=== PATIENT | male | born 1945 | race Caucasian/White ===

== ENCOUNTER 2023-01-19 20:46 | Inpatient (IN) | payer MEDICARE ==
[2023-01-19] MEDS ORDERED: Artificial Tear Sol 15 ML BOT EA EYE PRN (21:21)
[2023-01-19] MEDS ORDERED: Bisacodyl 10 MG SUPP PR PRN (21:21)
[2023-01-19] MEDS ORDERED: Acetaminophen 650 MG Suppository PR PRN (21:21)
[2023-01-19] MEDS ORDERED: Bisacodyl 5 MG TAB PO PRN (21:21)
[2023-01-19] MEDS ORDERED: Senokot S 8.6-50 MG TAB PO PRN (21:21)
[2023-01-19] MEDS ORDERED: Guaifenesin DM 100-10/5 ML UDCUP PO PRN (21:21)
[2023-01-19] MEDS ORDERED: Cepastat Lozenges 1 LOZ PO PRN (21:21)
[2023-01-19] MEDS ORDERED: Benzonatate 100 MG CAP PO PRN (21:21)
[2023-01-19] MEDS ORDERED: Labetalol HCl 100 MG/20 ML VIAL SLOW IVP PRN (21:21)
[2023-01-19] MEDS ORDERED: Calcium Carbonate 500 MG ChewTAB PO PRN (21:21)
[2023-01-19] MEDS ORDERED: Atorvastatin Calcium 40 MG TAB PO SCH (21:45)
[2023-01-19] MEDS ORDERED: Famotidine 20 MG TAB PO SCH (21:45)
[2023-01-19] MEDS ORDERED: Sertraline 25 MG TAB PO SCH (21:45)
[2023-01-20] MEDS: Sodium Chloride 0.9% 1,000 ML IV SCH ×2 (00:28→05:14)
[2023-01-20 05:42] LABS: #Basophils 0.1 thou/uL (0.0-0.2); #Eosinphils 0.4 thou/uL (0.0-0.7); #Lymphocytes 1.7 thou/uL (1.20-3.40); #Monocytes 0.9 thou/uL (0.11-0.59); #Neutrophils 6.5 thou/uL (1.40-6.50); %Basophils 0.7 % (0.0-1.0); %Eosinophils 3.9 % (0.0-10.0); %Lymphocytes 17.4 % (21.0-51.0); %Monocytes 9.3 % (0.0-10.0); %Neutrophils 68.6 % (42.0-75.0); Hemoglobin 12.9 g/dL (14.0-18.0); Mean Corpuscular HGB CONC 34.1 g/dL (32.0-36.0); Mean Platelet Volume 6.7 fL (7.4-10.4); Platelet Count 317 10x3/uL (130-400); RBC Distribution Width 11.3 % (11.5-14.5); Red Blood Cell (RBC) Count 4.16 mill/uL (4.70-6.10); White Blood Cell (WBC) Count 9.5 10x3/uL (4.8-10.8)
[2023-01-20 05:54] LABS: Anion Gap 15 mmol/L (10-20); BUN (Urea Nitrogen) 12 mg/dL (8.4-25.7); Calc. Creatinine Clearance 0 mL/min (70-130); Calcium 9.1 mg/dL (7.8-10.44); Carbon Dioxide 18 mmol/L (23-31); Chloride 110 mmol/L (98-107); Estimated GFR 96; Glucose 87 mg/dL (83-110); Potassium 3.7 mmol/L (3.5-5.1); Sodium 139 mmol/L (136-145)
[2023-01-20] MEDS: Losartan 25 MG TAB PO SCH (09:57)
[2023-01-20] MEDS: NIFEdipine XL 30 MG TAB PO SCH (09:57)
[2023-01-20] MEDS: Famotidine 20 MG TAB PO SCH ×2 (09:57→20:46)
[2023-01-20] MEDS: Loratadine 10 MG TAB PO SCH (09:57)
[2023-01-20] MEDS: Venlafaxine HCl 25 MG TAB PO SCH (09:58)
[2023-01-20] MEDS: Tamsulosin HCl 0.4 MG CAP PO SCH (09:58)
[2023-01-20] MEDS: Acetaminophen 325 MG TAB PO PRN ×2 (10:24→19:06)
[2023-01-20] MEDS: cefTRIAXone\\ROCEPHIN 1 GM in Sodium Chloride 0.9% 100 ML IVPB SCH (17:52)
[2023-01-20] MEDS ORDERED: Fluticasone Propionate Nasal Spray 16 gm Bottle NASAL SCH (18:00)
[2023-01-20] MEDS: Sertraline 100 MG TAB PO SCH (20:46)
[2023-01-20] MEDS: Atorvastatin Calcium 40 MG TAB PO SCH (20:46)
[2023-01-20] MEDS ORDERED: Sertraline 25 MG TAB PO SCH (21:00)
[2023-01-20] MEDS ORDERED: Sodium Chloride 0.9% 1,000 ML IV SCH (23:45)
[2023-01-21] MEDS: Venlafaxine HCl 25 MG TAB PO SCH (08:38)
[2023-01-21] MEDS: Loratadine 10 MG TAB PO SCH (08:39)
[2023-01-21] MEDS: Famotidine 20 MG TAB PO SCH ×2 (08:39→21:00)
[2023-01-21] MEDS: Losartan 25 MG TAB PO SCH (08:39)
[2023-01-21] MEDS: Tamsulosin HCl 0.4 MG CAP PO SCH (08:39)
[2023-01-21] MEDS: NIFEdipine XL 30 MG TAB PO SCH (08:39)
[2023-01-21] MEDS: cefTRIAXone\\ROCEPHIN 1 GM in Sodium Chloride 0.9% 100 ML IVPB SCH (17:42)
[2023-01-21] MEDS: Acetaminophen 325 MG TAB PO PRN (18:15)
[2023-01-21] MEDS: QUEtiapine 25 MG TAB PO SCH (21:00)
[2023-01-21] MEDS: Atorvastatin Calcium 40 MG TAB PO SCH (21:00)
[2023-01-21] MEDS: Sertraline 100 MG TAB PO SCH (21:01)
[2023-01-22] MEDS: Loratadine 10 MG TAB PO SCH (08:26)
[2023-01-22] MEDS: Losartan 25 MG TAB PO SCH (08:26)
[2023-01-22] MEDS: Tamsulosin HCl 0.4 MG CAP PO SCH (08:26)
[2023-01-22] MEDS: NIFEdipine XL 30 MG TAB PO SCH (08:26)
[2023-01-22] MEDS: Famotidine 20 MG TAB PO SCH ×2 (08:26→21:13)
[2023-01-22] MEDS: Venlafaxine HCl 25 MG TAB PO SCH (08:26)
[2023-01-22] MEDS: Fluticasone Propionate Nasal Spray 16 gm Bottle NASAL SCH (08:31)
[2023-01-22] MEDS: cefTRIAXone\\ROCEPHIN 1 GM in Sodium Chloride 0.9% 100 ML IVPB SCH (17:27)
[2023-01-22] MEDS: Sertraline 100 MG TAB PO SCH (21:11)
[2023-01-22] MEDS: Atorvastatin Calcium 40 MG TAB PO SCH (21:13)
[2023-01-22] MEDS: QUEtiapine 25 MG TAB PO SCH (21:13)
[2023-01-23] MEDS: Famotidine 20 MG TAB PO SCH ×2 (09:12→20:50)
[2023-01-23] MEDS: Loratadine 10 MG TAB PO SCH (09:12)
[2023-01-23] MEDS: Losartan 25 MG TAB PO SCH (09:12)
[2023-01-23] MEDS: Tamsulosin HCl 0.4 MG CAP PO SCH (09:12)
[2023-01-23] MEDS: Venlafaxine HCl 25 MG TAB PO SCH (09:12)
[2023-01-23] MEDS: NIFEdipine XL 30 MG TAB PO SCH (09:12)
[2023-01-23] MEDS: Fluticasone Propionate Nasal Spray 16 gm Bottle NASAL SCH (09:18)
[2023-01-23 15:13] LABS: SARS-CoV-2 NAA Rapid Test Not Detected (NotDetected)
[2023-01-23] MEDS: cefTRIAXone\\ROCEPHIN 1 GM in Sodium Chloride 0.9% 100 ML IVPB SCH (17:57)
[2023-01-23] MEDS: Sertraline 100 MG TAB PO SCH (20:48)
[2023-01-23] MEDS: QUEtiapine 25 MG TAB PO SCH (20:49)
[2023-01-23] MEDS: Atorvastatin Calcium 40 MG TAB PO SCH (20:50)
[2023-01-24] MEDS: NIFEdipine XL 30 MG TAB PO SCH (08:17)
[2023-01-24] MEDS: Venlafaxine HCl 25 MG TAB PO SCH (08:17)
[2023-01-24] MEDS: Tamsulosin HCl 0.4 MG CAP PO SCH (08:17)
[2023-01-24] MEDS: Losartan Potassium 50 MG TAB PO SCH (08:17)
[2023-01-24] MEDS: Loratadine 10 MG TAB PO SCH (08:18)
[2023-01-24] MEDS: Famotidine 20 MG TAB PO SCH ×2 (08:18→20:29)
[2023-01-24] MEDS: Fluticasone Propionate Nasal Spray 16 gm Bottle NASAL SCH (08:22)
[2023-01-24] MEDS: cefTRIAXone\\ROCEPHIN 1 GM in Sodium Chloride 0.9% 100 ML IVPB SCH (18:17)
[2023-01-24] MEDS: Atorvastatin Calcium 40 MG TAB PO SCH (20:29)
[2023-01-24] MEDS: Sertraline 100 MG TAB PO SCH (20:29)
[2023-01-24] MEDS: QUEtiapine 25 MG TAB PO SCH (20:30)
[2023-01-24] MEDS: Acetaminophen 325 MG TAB PO PRN (20:34)
[2023-01-25 06:26] LABS: #Basophils 0.1 thou/uL (0.0-0.2); #Eosinphils 0.6 thou/uL (0.0-0.7); #Lymphocytes 1.6 thou/uL (1.20-3.40); #Monocytes 0.7 thou/uL (0.11-0.59); #Neutrophils 2.8 thou/uL (1.40-6.50); %Eosinophils 10.9 % (0.0-10.0); %Lymphocytes 27.7 % (21.0-51.0); %Monocytes 11.7 % (0.0-10.0); %Neutrophils 48.8 % (42.0-75.0); Mean Corpuscular HGB CONC 32.2 g/dL (32.0-36.0); Mean Corpuscular Hemoglobin 29.4 pg (27.0-31.0); Mean Corpuscular Volume 91.5 fl (78.0-98.0); Mean Platelet Volume 7.3 fL (7.4-10.4); Platelet Count 310 10x3/uL (130-400); RBC Distribution Width 11.7 % (11.5-14.5); Red Blood Cell (RBC) Count 4.09 mill/uL (4.70-6.10); White Blood Cell (WBC) Count 5.8 10x3/uL (4.8-10.8)
[2023-01-25 06:33] LABS: Anion Gap 14 mmol/L (10-20); BUN (Urea Nitrogen) 10 mg/dL (8.4-25.7); Calc. Creatinine Clearance 97 mL/min (70-130); Calcium 9.2 mg/dL (7.8-10.44); Carbon Dioxide 20 mmol/L (23-31); Chloride 109 mmol/L (98-107); Estimated GFR 95; Glucose 96 mg/dL (83-110); Potassium 3.5 mmol/L (3.5-5.1); Sodium 139 mmol/L (136-145)
[2023-01-25] MEDS: Venlafaxine HCl 25 MG TAB PO SCH (08:59)
[2023-01-25] MEDS: Tamsulosin HCl 0.4 MG CAP PO SCH (08:59)
[2023-01-25] MEDS: NIFEdipine XL 30 MG TAB PO SCH (08:59)
[2023-01-25] MEDS: Famotidine 20 MG TAB PO SCH ×2 (09:00→20:30)
[2023-01-25] MEDS: Losartan Potassium 50 MG TAB PO SCH (09:00)
[2023-01-25] MEDS: Loratadine 10 MG TAB PO SCH (09:00)
[2023-01-25] MEDS: Fluticasone Propionate Nasal Spray 16 gm Bottle NASAL SCH (09:09)
[2023-01-25] MEDS: Atorvastatin Calcium 40 MG TAB PO SCH (20:30)
[2023-01-25] MEDS: QUEtiapine 25 MG TAB PO SCH (20:30)
[2023-01-25] MEDS: Sertraline 100 MG TAB PO SCH (20:30)
[2023-01-25] MEDS: Acetaminophen 325 MG TAB PO PRN (20:36)
[2023-01-26] MEDS: Loratadine 10 MG TAB PO SCH (09:43)
[2023-01-26] MEDS: NIFEdipine XL 30 MG TAB PO SCH (09:44)
[2023-01-26] MEDS: Famotidine 20 MG TAB PO SCH ×2 (09:44→20:46)
[2023-01-26] MEDS: Venlafaxine HCl 25 MG TAB PO SCH (09:44)
[2023-01-26] MEDS: Tamsulosin HCl 0.4 MG CAP PO SCH (09:44)
[2023-01-26] MEDS: Losartan Potassium 50 MG TAB PO SCH (09:44)
[2023-01-26] MEDS: Fluticasone Propionate Nasal Spray 16 gm Bottle NASAL SCH (09:45)
[2023-01-26] MEDS: Acetaminophen 325 MG TAB PO PRN (16:57)
[2023-01-26] MEDS: Atorvastatin Calcium 40 MG TAB PO SCH (20:45)
[2023-01-26] MEDS: QUEtiapine 25 MG TAB PO SCH (20:45)
[2023-01-26] MEDS: Sertraline 100 MG TAB PO SCH (20:46)
[2023-01-27] MEDS: Acetaminophen 325 MG TAB PO PRN ×2 (07:51→20:56)
[2023-01-27] MEDS: NIFEdipine XL 30 MG TAB PO SCH (07:52)
[2023-01-27] MEDS: Losartan Potassium 50 MG TAB PO SCH (07:52)
[2023-01-27] MEDS: Famotidine 20 MG TAB PO SCH ×2 (07:52→20:57)
[2023-01-27] MEDS: Loratadine 10 MG TAB PO SCH (07:52)
[2023-01-27] MEDS: Venlafaxine HCl 25 MG TAB PO SCH (07:52)
[2023-01-27] MEDS: Tamsulosin HCl 0.4 MG CAP PO SCH (07:52)
[2023-01-27] MEDS: Fluticasone Propionate Nasal Spray 16 gm Bottle NASAL SCH (07:53)
[2023-01-27] MEDS: QUEtiapine 25 MG TAB PO SCH (20:55)
[2023-01-27] MEDS: Sertraline 100 MG TAB PO SCH (20:56)
[2023-01-27] MEDS: Atorvastatin Calcium 40 MG TAB PO SCH (20:56)
[2023-01-28 06:13] LABS: Anion Gap 13 mmol/L (10-20); BUN (Urea Nitrogen) 12 mg/dL (8.4-25.7); Calc. Creatinine Clearance 95 mL/min (70-130); Carbon Dioxide 20 mmol/L (23-31); Chloride 108 mmol/L (98-107); Estimated GFR 95; Glucose 95 mg/dL (83-110); Potassium 3.6 mmol/L (3.5-5.1); Sodium 137 mmol/L (136-145)
[2023-01-28 06:39] LABS: #Basophils 0.1 thou/uL (0.0-0.2); #Eosinphils 0.4 thou/uL (0.0-0.7); #Lymphocytes 1.4 thou/uL (1.20-3.40); #Monocytes 0.8 thou/uL (0.11-0.59); #Neutrophils 7.8 thou/uL (1.40-6.50); %Basophils 0.5 % (0.0-1.0); %Eosinophils 4.3 % (0.0-10.0); %Lymphocytes 13.8 % (21.0-51.0); %Monocytes 7.3 % (0.0-10.0); %Neutrophils 74.2 % (42.0-75.0); Hemoglobin 12.4 g/dL (14.0-18.0); Mean Corpuscular HGB CONC 33.1 g/dL (32.0-36.0); Mean Corpuscular Hemoglobin 30.4 pg (27.0-31.0); Mean Corpuscular Volume 91.7 fl (78.0-98.0); Mean Platelet Volume 7.2 fL (7.4-10.4); Platelet Count 298 10x3/uL (130-400); RBC Distribution Width 11.7 % (11.5-14.5); Red Blood Cell (RBC) Count 4.09 mill/uL (4.70-6.10); White Blood Cell (WBC) Count 10.5 10x3/uL (4.8-10.8)
[2023-01-28] MEDS: Tamsulosin HCl 0.4 MG CAP PO SCH (08:49)
[2023-01-28] MEDS: Venlafaxine HCl 25 MG TAB PO SCH (08:49)
[2023-01-28] MEDS: NIFEdipine XL 30 MG TAB PO SCH (08:50)
[2023-01-28] MEDS: Famotidine 20 MG TAB PO SCH ×2 (08:50→20:59)
[2023-01-28] MEDS: Loratadine 10 MG TAB PO SCH (08:50)
[2023-01-28] MEDS: Fluticasone Propionate Nasal Spray 16 gm Bottle NASAL SCH (08:51)
[2023-01-28] MEDS: Losartan Potassium 50 MG TAB PO SCH (08:51)
[2023-01-28] MEDS: Atorvastatin Calcium 40 MG TAB PO SCH (20:59)
[2023-01-28] MEDS: Sertraline 100 MG TAB PO SCH (20:59)
[2023-01-28] MEDS: QUEtiapine 25 MG TAB PO SCH (21:00)
[2023-01-29] MEDS: Acetaminophen 325 MG TAB PO PRN ×2 (07:17→16:00)
[2023-01-29] MEDS: Fluticasone Propionate Nasal Spray 16 gm Bottle NASAL SCH (08:13)
[2023-01-29] MEDS: Tamsulosin HCl 0.4 MG CAP PO SCH (08:14)
[2023-01-29] MEDS: Venlafaxine HCl 25 MG TAB PO SCH (08:14)
[2023-01-29] MEDS: Loratadine 10 MG TAB PO SCH (08:15)
[2023-01-29] MEDS: Famotidine 20 MG TAB PO SCH ×2 (08:15→20:16)
[2023-01-29] MEDS: Losartan Potassium 50 MG TAB PO SCH (08:15)
[2023-01-29] MEDS: NIFEdipine XL 30 MG TAB PO SCH (08:15)
[2023-01-29] MEDS: QUEtiapine 25 MG TAB PO SCH (20:16)
[2023-01-29] MEDS: Atorvastatin Calcium 40 MG TAB PO SCH (20:16)
[2023-01-29] MEDS: Sertraline 100 MG TAB PO SCH (20:16)
[2023-01-30] MEDS: Venlafaxine HCl 25 MG TAB PO SCH (08:35)
[2023-01-30] MEDS: Loratadine 10 MG TAB PO SCH (08:35)
[2023-01-30] MEDS: Losartan Potassium 50 MG TAB PO SCH (08:36)
[2023-01-30] MEDS: Tamsulosin HCl 0.4 MG CAP PO SCH (08:36)
[2023-01-30] MEDS: Famotidine 20 MG TAB PO SCH ×2 (08:36→20:56)
[2023-01-30] MEDS: NIFEdipine XL 30 MG TAB PO SCH (08:36)
[2023-01-30] MEDS: Fluticasone Propionate Nasal Spray 16 gm Bottle NASAL SCH (08:37)
[2023-01-30] MEDS: Sertraline 100 MG TAB PO SCH (20:55)
[2023-01-30] MEDS: Atorvastatin Calcium 40 MG TAB PO SCH (20:55)
[2023-01-30] MEDS: Acetaminophen 325 MG TAB PO PRN (20:56)
[2023-01-30] MEDS: QUEtiapine 25 MG TAB PO SCH (20:56)
[2023-01-31] MEDS: Tamsulosin HCl 0.4 MG CAP PO SCH (08:54)
[2023-01-31] MEDS: Venlafaxine HCl 25 MG TAB PO SCH (08:54)
[2023-01-31] MEDS: Losartan Potassium 50 MG TAB PO SCH (08:54)
[2023-01-31] MEDS: Famotidine 20 MG TAB PO SCH ×2 (08:54→20:33)
[2023-01-31] MEDS: Fluticasone Propionate Nasal Spray 16 gm Bottle NASAL SCH (08:55)
[2023-01-31] MEDS: NIFEdipine XL 30 MG TAB PO SCH (08:55)
[2023-01-31] MEDS: Loratadine 10 MG TAB PO SCH (08:55)
[2023-01-31] MEDS: Acetaminophen 325 MG TAB PO PRN (15:00)
[2023-01-31] MEDS: QUEtiapine 25 MG TAB PO SCH (20:33)
[2023-01-31] MEDS: Sertraline 100 MG TAB PO SCH (20:33)
[2023-01-31] MEDS: Atorvastatin Calcium 40 MG TAB PO SCH (20:33)
[2023-02-01 05:55] LABS: #Basophils 0.1 thou/uL (0.0-0.2); #Eosinphils 0.5 thou/uL (0.0-0.7); #Lymphocytes 1.1 thou/uL (1.20-3.40); #Monocytes 0.7 thou/uL (0.11-0.59); %Basophils 0.7 % (0.0-1.0); %Eosinophils 5.5 % (0.0-10.0); %Lymphocytes 13.6 % (21.0-51.0); %Monocytes 8.3 % (0.0-10.0); %Neutrophils 71.9 % (42.0-75.0); Hemoglobin 12.3 g/dL (14.0-18.0); Mean Corpuscular HGB CONC 32.5 g/dL (32.0-36.0); Mean Corpuscular Hemoglobin 29.8 pg (27.0-31.0); Mean Corpuscular Volume 91.6 fl (78.0-98.0); Mean Platelet Volume 7.5 fL (7.4-10.4); Platelet Count 263 10x3/uL (130-400); RBC Distribution Width 11.9 % (11.5-14.5); Red Blood Cell (RBC) Count 4.13 mill/uL (4.70-6.10); White Blood Cell (WBC) Count 8.4 10x3/uL (4.8-10.8)
[2023-02-01 06:05] LABS: Anion Gap 15 mmol/L (10-20); BUN (Urea Nitrogen) 9 mg/dL (8.4-25.7); Calc. Creatinine Clearance 103 mL/min (70-130); Calcium 9.4 mg/dL (7.8-10.44); Carbon Dioxide 18 mmol/L (23-31); Chloride 109 mmol/L (98-107); Estimated GFR 98; Glucose 96 mg/dL (83-110); Potassium 3.3 mmol/L (3.5-5.1); Sodium 139 mmol/L (136-145)
[2023-02-01] MEDS: NIFEdipine XL 30 MG TAB PO SCH (09:41)
[2023-02-01] MEDS: Fluticasone Propionate Nasal Spray 16 gm Bottle NASAL SCH (09:41)
[2023-02-01] MEDS: Tamsulosin HCl 0.4 MG CAP PO SCH (09:42)
[2023-02-01] MEDS: Venlafaxine HCl 25 MG TAB PO SCH (09:42)
[2023-02-01] MEDS: Loratadine 10 MG TAB PO SCH (09:42)
[2023-02-01] MEDS: Famotidine 20 MG TAB PO SCH ×2 (09:42→21:15)
[2023-02-01] MEDS: Losartan Potassium 50 MG TAB PO SCH (09:42)
[2023-02-01] MEDS: Acetaminophen 325 MG TAB PO PRN ×2 (15:17→21:14)
[2023-02-01] MEDS ORDERED: Potassium Chloride 20 MEQ TAB PO SCH (19:30)
[2023-02-01] MEDS: QUEtiapine 25 MG TAB PO SCH (21:14)
[2023-02-01] MEDS: Atorvastatin Calcium 40 MG TAB PO SCH (21:15)
[2023-02-01] MEDS: Sertraline 100 MG TAB PO SCH (21:15)
[2023-02-02 06:11] LABS: Anion Gap 16 mmol/L (10-20); BUN (Urea Nitrogen) 11 mg/dL (8.4-25.7); Calc. Creatinine Clearance 105 mL/min (70-130); Calcium 9.3 mg/dL (7.8-10.44); Carbon Dioxide 18 mmol/L (23-31); Chloride 110 mmol/L (98-107); Estimated GFR 98; Glucose 99 mg/dL (83-110); Magnesium 1.8 mg/dL (1.6-2.6); Potassium 3.6 mmol/L (3.5-5.1); Sodium 140 mmol/L (136-145)
[2023-02-02] MEDS: Fluticasone Propionate Nasal Spray 16 gm Bottle NASAL SCH (08:11)
[2023-02-02] MEDS: Venlafaxine HCl 25 MG TAB PO SCH (08:12)
[2023-02-02] MEDS: Losartan Potassium 50 MG TAB PO SCH (08:12)
[2023-02-02] MEDS: NIFEdipine XL 30 MG TAB PO SCH (08:12)
[2023-02-02] MEDS: Tamsulosin HCl 0.4 MG CAP PO SCH (08:12)
[2023-02-02] MEDS: Famotidine 20 MG TAB PO SCH ×2 (08:13→21:07)
[2023-02-02] MEDS: Loratadine 10 MG TAB PO SCH (08:13)
[2023-02-02] MEDS: QUEtiapine 25 MG TAB PO SCH (21:05)
[2023-02-02] MEDS: Acetaminophen 325 MG TAB PO PRN (21:06)
[2023-02-02] MEDS: Atorvastatin Calcium 40 MG TAB PO SCH (21:06)
[2023-02-02] MEDS: Sertraline 100 MG TAB PO SCH (21:07)
[2023-02-03] MEDS: Famotidine 20 MG TAB PO SCH ×2 (08:37→21:45)
[2023-02-03] MEDS: Venlafaxine HCl 25 MG TAB PO SCH (08:37)
[2023-02-03] MEDS: Tamsulosin HCl 0.4 MG CAP PO SCH (08:38)
[2023-02-03] MEDS: Loratadine 10 MG TAB PO SCH (08:38)
[2023-02-03] MEDS: NIFEdipine XL 30 MG TAB PO SCH (08:39)
[2023-02-03] MEDS: Losartan Potassium 50 MG TAB PO SCH (08:39)
[2023-02-03] MEDS: Acetaminophen 325 MG TAB PO PRN ×2 (08:40→17:39)
[2023-02-03] MEDS: Fluticasone Propionate Nasal Spray 16 gm Bottle NASAL SCH (08:42)
[2023-02-03] MEDS: Sertraline 100 MG TAB PO SCH (21:44)
[2023-02-03] MEDS: QUEtiapine 25 MG TAB PO SCH (21:45)
[2023-02-03] MEDS: Atorvastatin Calcium 40 MG TAB PO SCH (21:45)
[2023-02-04 05:42] LABS: #Basophils 0.1 thou/uL (0.0-0.2); #Eosinphils 0.5 thou/uL (0.0-0.7); #Lymphocytes 1.4 thou/uL (1.20-3.40); #Monocytes 0.7 thou/uL (0.11-0.59); #Neutrophils 5.4 thou/uL (1.40-6.50); %Basophils 0.8 % (0.0-1.0); %Eosinophils 5.8 % (0.0-10.0); %Lymphocytes 17.5 % (21.0-51.0); %Monocytes 8.3 % (0.0-10.0); %Neutrophils 67.6 % (42.0-75.0); Hemoglobin 12.4 g/dL (14.0-18.0); Mean Corpuscular Hemoglobin 29.7 pg (27.0-31.0); Mean Platelet Volume 7.2 fL (7.4-10.4); Platelet Count 271 10x3/uL (130-400); RBC Distribution Width 11.6 % (11.5-14.5); Red Blood Cell (RBC) Count 4.17 mill/uL (4.70-6.10)
[2023-02-04 05:50] LABS: Anion Gap 14 mmol/L (10-20); BUN (Urea Nitrogen) 10 mg/dL (8.4-25.7); Calc. Creatinine Clearance 92 mL/min (70-130); Calcium 9.5 mg/dL (7.8-10.44); Carbon Dioxide 20 mmol/L (23-31); Chloride 109 mmol/L (98-107); Estimated GFR 96; Glucose 100 mg/dL (83-110); Potassium 3.5 mmol/L (3.5-5.1); Sodium 139 mmol/L (136-145)
[2023-02-04] MEDS: Fluticasone Propionate Nasal Spray 16 gm Bottle NASAL SCH (07:53)
[2023-02-04] MEDS: Tamsulosin HCl 0.4 MG CAP PO SCH (07:54)
[2023-02-04] MEDS: NIFEdipine XL 30 MG TAB PO SCH (07:54)
[2023-02-04] MEDS: Venlafaxine HCl 25 MG TAB PO SCH (07:54)
[2023-02-04] MEDS: Loratadine 10 MG TAB PO SCH (07:54)
[2023-02-04] MEDS: Famotidine 20 MG TAB PO SCH ×2 (07:55→21:32)
[2023-02-04] MEDS: Losartan Potassium 50 MG TAB PO SCH (07:55)
[2023-02-04] MEDS: QUEtiapine 25 MG TAB PO SCH (21:32)
[2023-02-04] MEDS: Acetaminophen 325 MG TAB PO PRN (21:32)
[2023-02-04] MEDS: Sertraline 100 MG TAB PO SCH (21:33)
[2023-02-04] MEDS: Atorvastatin Calcium 40 MG TAB PO SCH (21:34)
[2023-02-05] MEDS: Venlafaxine HCl 25 MG TAB PO SCH (08:19)
[2023-02-05] MEDS: Loratadine 10 MG TAB PO SCH (08:20)
[2023-02-05] MEDS: Fluticasone Propionate Nasal Spray 16 gm Bottle NASAL SCH (08:20)
[2023-02-05] MEDS: NIFEdipine XL 30 MG TAB PO SCH (08:20)
[2023-02-05] MEDS: Tamsulosin HCl 0.4 MG CAP PO SCH (08:20)
[2023-02-05] MEDS: Famotidine 20 MG TAB PO SCH ×2 (08:20→21:32)
[2023-02-05] MEDS: Losartan Potassium 50 MG TAB PO SCH (08:20)
[2023-02-05 08:26] LABS: Bilirubin Small (Negative); Blood, Urine Negative (Negative); Clarity Clear (Clear); Glucose, Urine (Dipstick) Negative (Negative); Ketone, Urine Negative (Negative); Leukocyte Negative (Negative); Nitrite Negative (Negative); Protein, Urine (Dipstick) Negative (Neg-Trace); pH, Urine 5.5 (5.0-9.0)
[2023-02-05 08:28] LABS: Specific Gravity, Urine 1.025 (1.002-1.036)
[2023-02-05 08:30] LABS: Bacteria/HPF None Seen HPF (None Seen); CAUTI Indications for Culture Dysuria,urgency,freq; RBC/HPF None Seen HPF (0-3); Squamous Epithelial None Seen HPF (0-3); WBC/HPF None Seen HPF (0-3)
[2023-02-05 08:32] LABS: Urine Culture Reflex No No
[2023-02-05] MEDS: Acetaminophen 325 MG TAB PO PRN ×2 (10:21→21:33)
[2023-02-05] MEDS: QUEtiapine 25 MG TAB PO SCH (21:32)
[2023-02-05] MEDS: Atorvastatin Calcium 40 MG TAB PO SCH (21:33)
[2023-02-05] MEDS: Sertraline 100 MG TAB PO SCH (21:33)
[2023-02-06] MEDS: Fluticasone Propionate Nasal Spray 16 gm Bottle NASAL SCH (08:30)
[2023-02-06] MEDS: Venlafaxine HCl 25 MG TAB PO SCH (08:30)
[2023-02-06] MEDS: Acetaminophen 325 MG TAB PO PRN ×2 (08:31→20:59)
[2023-02-06] MEDS: Losartan Potassium 50 MG TAB PO SCH (08:31)
[2023-02-06] MEDS: Tamsulosin HCl 0.4 MG CAP PO SCH (08:31)
[2023-02-06] MEDS: Famotidine 20 MG TAB PO SCH ×2 (08:32→21:00)
[2023-02-06] MEDS: Loratadine 10 MG TAB PO SCH (08:32)
[2023-02-06] MEDS: NIFEdipine XL 30 MG TAB PO SCH (08:32)
[2023-02-06] MEDS: QUEtiapine 25 MG TAB PO SCH (20:58)
[2023-02-06] MEDS: Atorvastatin Calcium 40 MG TAB PO SCH (20:59)
[2023-02-06] MEDS: Sertraline 100 MG TAB PO SCH (20:59)
[2023-02-07] MEDS: Famotidine 20 MG TAB PO SCH ×2 (07:48→20:48)
[2023-02-07] MEDS: Losartan Potassium 50 MG TAB PO SCH (07:48)
[2023-02-07] MEDS: Tamsulosin HCl 0.4 MG CAP PO SCH (07:49)
[2023-02-07] MEDS: Venlafaxine HCl 25 MG TAB PO SCH (07:49)
[2023-02-07] MEDS: Loratadine 10 MG TAB PO SCH (07:49)
[2023-02-07] MEDS: NIFEdipine XL 30 MG TAB PO SCH (08:03)
[2023-02-07] MEDS: Fluticasone Propionate Nasal Spray 16 gm Bottle NASAL SCH (08:03)
[2023-02-07] MEDS: Acetaminophen 325 MG TAB PO PRN ×2 (09:25→20:47)
[2023-02-07] MEDS: QUEtiapine 25 MG TAB PO SCH (20:46)
[2023-02-07] MEDS: Sertraline 100 MG TAB PO SCH (20:47)
[2023-02-07] MEDS: Atorvastatin Calcium 40 MG TAB PO SCH (20:48)
[2023-02-08 05:55] LABS: #Basophils 0.1 thou/uL (0.0-0.2); #Eosinphils 0.7 thou/uL (0.0-0.7); #Lymphocytes 1.6 thou/uL (1.20-3.40); #Monocytes 0.7 thou/uL (0.11-0.59); #Neutrophils 4.4 thou/uL (1.40-6.50); %Basophils 0.8 % (0.0-1.0); %Eosinophils 9.3 % (0.0-10.0); %Lymphocytes 21.8 % (21.0-51.0); %Monocytes 9.1 % (0.0-10.0); Hemoglobin 11.9 g/dL (14.0-18.0); Mean Corpuscular HGB CONC 31.8 g/dL (32.0-36.0); Mean Corpuscular Hemoglobin 29.1 pg (27.0-31.0); Mean Corpuscular Volume 91.4 fl (78.0-98.0); Mean Platelet Volume 6.9 fL (7.4-10.4); Platelet Count 286 10x3/uL (130-400); RBC Distribution Width 11.7 % (11.5-14.5); Red Blood Cell (RBC) Count 4.09 mill/uL (4.70-6.10); White Blood Cell (WBC) Count 7.5 10x3/uL (4.8-10.8)
[2023-02-08 06:28] LABS: Anion Gap 16 mmol/L (10-20); BUN (Urea Nitrogen) 10 mg/dL (8.4-25.7); Calc. Creatinine Clearance 97 mL/min (70-130); Calcium 9.6 mg/dL (7.8-10.44); Carbon Dioxide 19 mmol/L (23-31); Chloride 108 mmol/L (98-107); Estimated GFR 97; Glucose 102 mg/dL (83-110); Potassium 3.5 mmol/L (3.5-5.1); Sodium 139 mmol/L (136-145)
[2023-02-08] MEDS: Losartan Potassium 50 MG TAB PO SCH (09:07)
[2023-02-08] MEDS: Tamsulosin HCl 0.4 MG CAP PO SCH (09:07)
[2023-02-08] MEDS: NIFEdipine XL 30 MG TAB PO SCH (09:07)
[2023-02-08] MEDS: Loratadine 10 MG TAB PO SCH (09:07)
[2023-02-08] MEDS: Venlafaxine HCl 25 MG TAB PO SCH (09:07)
[2023-02-08] MEDS: Famotidine 20 MG TAB PO SCH ×2 (09:07→20:00)
[2023-02-08] MEDS: Fluticasone Propionate Nasal Spray 16 gm Bottle NASAL SCH (09:08)
[2023-02-08] MEDS: Sertraline 100 MG TAB PO SCH (20:00)
[2023-02-08] MEDS: QUEtiapine 25 MG TAB PO SCH (20:00)
[2023-02-08] MEDS: Acetaminophen 325 MG TAB PO PRN (20:00)
[2023-02-08] MEDS: Atorvastatin Calcium 40 MG TAB PO SCH (20:00)
[2023-02-09] MEDS: Fluticasone Propionate Nasal Spray 16 gm Bottle NASAL SCH (09:21)
[2023-02-09] MEDS: Famotidine 20 MG TAB PO SCH ×2 (09:22→20:32)
[2023-02-09] MEDS: Losartan Potassium 50 MG TAB PO SCH (09:22)
[2023-02-09] MEDS: Tamsulosin HCl 0.4 MG CAP PO SCH (09:22)
[2023-02-09] MEDS: NIFEdipine XL 30 MG TAB PO SCH (09:22)
[2023-02-09] MEDS: Loratadine 10 MG TAB PO SCH (09:23)
[2023-02-09] MEDS: Venlafaxine HCl 25 MG TAB PO SCH (09:23)
[2023-02-09] MEDS: Acetaminophen 325 MG TAB PO PRN (17:46)
[2023-02-09] MEDS: Atorvastatin Calcium 40 MG TAB PO SCH (20:31)
[2023-02-09] MEDS: Sertraline 100 MG TAB PO SCH (20:31)
[2023-02-09] MEDS: QUEtiapine 25 MG TAB PO SCH (20:32)
[2023-02-10] MEDS: Fluticasone Propionate Nasal Spray 16 gm Bottle NASAL SCH (08:20)
[2023-02-10] MEDS: Losartan Potassium 50 MG TAB PO SCH (08:21)
[2023-02-10] MEDS: Tamsulosin HCl 0.4 MG CAP PO SCH (08:21)
[2023-02-10] MEDS: Loratadine 10 MG TAB PO SCH (08:21)
[2023-02-10] MEDS: Venlafaxine HCl 25 MG TAB PO SCH (08:21)
[2023-02-10] MEDS: NIFEdipine XL 30 MG TAB PO SCH (08:21)
[2023-02-10] MEDS: Famotidine 20 MG TAB PO SCH ×2 (08:21→20:20)
[2023-02-10] MEDS: Acetaminophen 325 MG TAB PO PRN ×2 (08:26→20:21)
[2023-02-10] MEDS: Sertraline 100 MG TAB PO SCH (20:20)
[2023-02-10] MEDS: Atorvastatin Calcium 40 MG TAB PO SCH (20:20)
[2023-02-10] MEDS: QUEtiapine 25 MG TAB PO SCH (20:20)
[2023-02-11 06:04] LABS: Anion Gap 16 mmol/L (10-20); BUN (Urea Nitrogen) 10 mg/dL (8.4-25.7); Calc. Creatinine Clearance 105 mL/min (70-130); Calcium 9.5 mg/dL (7.8-10.44); Chloride 107 mmol/L (98-107); Estimated GFR 98; Glucose 101 mg/dL (83-110); Potassium 3.5 mmol/L (3.5-5.1); Sodium 136 mmol/L (136-145)
[2023-02-11 06:14] LABS: #Basophils 0.1 thou/uL (0.0-0.2); #Eosinphils 0.7 thou/uL (0.0-0.7); #Lymphocytes 1.7 thou/uL (1.20-3.40); #Monocytes 0.6 thou/uL (0.11-0.59); #Neutrophils 4.8 thou/uL (1.40-6.50); %Basophils 0.7 % (0.0-1.0); %Eosinophils 8.5 % (0.0-10.0); %Lymphocytes 21.4 % (21.0-51.0); %Monocytes 8.1 % (0.0-10.0); %Neutrophils 61.3 % (42.0-75.0); Hemoglobin 12.2 g/dL (14.0-18.0); Mean Corpuscular HGB CONC 33.2 g/dL (32.0-36.0); Mean Corpuscular Hemoglobin 29.7 pg (27.0-31.0); Mean Corpuscular Volume 89.7 fl (78.0-98.0); Mean Platelet Volume 6.7 fL (7.4-10.4); Platelet Count 307 10x3/uL (130-400); Red Blood Cell (RBC) Count 4.11 mill/uL (4.70-6.10); White Blood Cell (WBC) Count 7.8 10x3/uL (4.8-10.8)
[2023-02-11 06:33] LABS: Carbon Dioxide 17 mmol/L (23-31)
[2023-02-11] MEDS: Famotidine 20 MG TAB PO SCH ×2 (09:08→20:21)
[2023-02-11] MEDS: Venlafaxine HCl 25 MG TAB PO SCH (09:08)
[2023-02-11] MEDS: Tamsulosin HCl 0.4 MG CAP PO SCH (09:08)
[2023-02-11] MEDS: Losartan Potassium 50 MG TAB PO SCH (09:09)
[2023-02-11] MEDS: NIFEdipine XL 30 MG TAB PO SCH (09:09)
[2023-02-11] MEDS: Fluticasone Propionate Nasal Spray 16 gm Bottle NASAL SCH (09:09)
[2023-02-11] MEDS: Loratadine 10 MG TAB PO SCH (09:09)
[2023-02-11] MEDS: Acetaminophen 325 MG TAB PO PRN ×2 (12:04→20:21)
[2023-02-11] MEDS: Atorvastatin Calcium 40 MG TAB PO SCH (20:20)
[2023-02-11] MEDS: QUEtiapine 25 MG TAB PO SCH (20:21)
[2023-02-11] MEDS: Sertraline 100 MG TAB PO SCH (20:21)
[2023-02-12] MEDS: Fluticasone Propionate Nasal Spray 16 gm Bottle NASAL SCH (08:25)
[2023-02-12] MEDS: Losartan Potassium 50 MG TAB PO SCH (08:26)
[2023-02-12] MEDS: Venlafaxine HCl 25 MG TAB PO SCH (08:26)
[2023-02-12] MEDS: Loratadine 10 MG TAB PO SCH (08:26)
[2023-02-12] MEDS: NIFEdipine XL 30 MG TAB PO SCH (08:26)
[2023-02-12] MEDS: Famotidine 20 MG TAB PO SCH ×2 (08:26→20:29)
[2023-02-12] MEDS: Tamsulosin HCl 0.4 MG CAP PO SCH (08:34)
[2023-02-12] MEDS: Acetaminophen 325 MG TAB PO PRN (20:29)
[2023-02-12] MEDS: Sertraline 100 MG TAB PO SCH (20:29)
[2023-02-12] MEDS: QUEtiapine 25 MG TAB PO SCH (20:29)
[2023-02-12] MEDS: Atorvastatin Calcium 40 MG TAB PO SCH (20:29)
[2023-02-13] MEDS: Loratadine 10 MG TAB PO SCH (08:36)
[2023-02-13] MEDS: Fluticasone Propionate Nasal Spray 16 gm Bottle NASAL SCH (08:36)
[2023-02-13] MEDS: Losartan Potassium 50 MG TAB PO SCH (08:36)
[2023-02-13] MEDS: Famotidine 20 MG TAB PO SCH ×2 (08:36→20:31)
[2023-02-13] MEDS: NIFEdipine XL 30 MG TAB PO SCH (08:37)
[2023-02-13] MEDS: Tamsulosin HCl 0.4 MG CAP PO SCH (08:37)
[2023-02-13] MEDS: Venlafaxine HCl 25 MG TAB PO SCH (08:40)
[2023-02-13] MEDS: Sertraline 100 MG TAB PO SCH (20:30)
[2023-02-13] MEDS: Acetaminophen 325 MG TAB PO PRN (20:31)
[2023-02-13] MEDS: QUEtiapine 25 MG TAB PO SCH (20:31)
[2023-02-13] MEDS: Atorvastatin Calcium 40 MG TAB PO SCH (20:31)
[2023-02-14] MEDS: Venlafaxine HCl 25 MG TAB PO SCH (09:16)
[2023-02-14] MEDS: Losartan Potassium 50 MG TAB PO SCH (09:16)
[2023-02-14] MEDS: NIFEdipine XL 30 MG TAB PO SCH (09:16)
[2023-02-14] MEDS: Loratadine 10 MG TAB PO SCH (09:16)
[2023-02-14] MEDS: Famotidine 20 MG TAB PO SCH ×2 (09:16→21:19)
[2023-02-14] MEDS: Tamsulosin HCl 0.4 MG CAP PO SCH (09:17)
[2023-02-14] MEDS: Fluticasone Propionate Nasal Spray 16 gm Bottle NASAL SCH (09:17)
[2023-02-14] MEDS: Acetaminophen 325 MG TAB PO PRN (21:19)
[2023-02-14] MEDS: QUEtiapine 25 MG TAB PO SCH (21:19)
[2023-02-14] MEDS: Atorvastatin Calcium 40 MG TAB PO SCH (21:19)
[2023-02-14] MEDS: Sertraline 100 MG TAB PO SCH (21:19)
[2023-02-15 05:55] LABS: #Eosinphils 0.7 thou/uL (0.0-0.7); #Lymphocytes 1.5 thou/uL (1.20-3.40); #Monocytes 0.6 thou/uL (0.11-0.59); #Neutrophils 2.9 thou/uL (1.40-6.50); %Basophils 0.7 % (0.0-1.0); %Eosinophils 11.9 % (0.0-10.0); %Lymphocytes 26.5 % (21.0-51.0); %Monocytes 10.4 % (0.0-10.0); %Neutrophils 50.5 % (42.0-75.0); Hemoglobin 11.4 g/dL (14.0-18.0); Mean Corpuscular HGB CONC 31.3 g/dL (32.0-36.0); Mean Corpuscular Hemoglobin 29.8 pg (27.0-31.0); Mean Corpuscular Volume 95.1 fl (78.0-98.0); Platelet Count 325 10x3/uL (130-400); RBC Distribution Width 12.6 % (11.5-14.5); Red Blood Cell (RBC) Count 3.84 mill/uL (4.70-6.10); White Blood Cell (WBC) Count 5.8 10x3/uL (4.8-10.8)
[2023-02-15 06:10] LABS: Anion Gap 12 mmol/L (10-20); BUN (Urea Nitrogen) 9 mg/dL (8.4-25.7); Calc. Creatinine Clearance 107 mL/min (70-130); Calcium 9.4 mg/dL (7.8-10.44); Carbon Dioxide 22 mmol/L (23-31); Chloride 110 mmol/L (98-107); Estimated GFR 99; Glucose 97 mg/dL (83-110); Potassium 3.3 mmol/L (3.5-5.1); Sodium 141 mmol/L (136-145)
[2023-02-15] MEDS: Famotidine 20 MG TAB PO SCH ×2 (09:05→20:42)
[2023-02-15] MEDS: Tamsulosin HCl 0.4 MG CAP PO SCH (09:06)
[2023-02-15] MEDS: Losartan Potassium 50 MG TAB PO SCH (09:06)
[2023-02-15] MEDS: Loratadine 10 MG TAB PO SCH (09:07)
[2023-02-15] MEDS: NIFEdipine XL 30 MG TAB PO SCH (09:07)
[2023-02-15] MEDS: Venlafaxine HCl 25 MG TAB PO SCH (09:08)
[2023-02-15] MEDS: Fluticasone Propionate Nasal Spray 16 gm Bottle NASAL SCH (09:09)
[2023-02-15] MEDS: Sertraline 100 MG TAB PO SCH (20:41)
[2023-02-15] MEDS: Atorvastatin Calcium 40 MG TAB PO SCH (20:41)
[2023-02-15] MEDS: QUEtiapine 25 MG TAB PO SCH (20:43)
[2023-02-15] MEDS: Acetaminophen 325 MG TAB PO PRN (20:43)
[2023-02-16] MEDS: Fluticasone Propionate Nasal Spray 16 gm Bottle NASAL SCH (08:34)
[2023-02-16] MEDS: Venlafaxine HCl 25 MG TAB PO SCH (08:35)
[2023-02-16] MEDS: Tamsulosin HCl 0.4 MG CAP PO SCH (08:35)
[2023-02-16] MEDS: NIFEdipine XL 30 MG TAB PO SCH (08:35)
[2023-02-16] MEDS: Losartan Potassium 50 MG TAB PO SCH (08:35)
[2023-02-16] MEDS: Famotidine 20 MG TAB PO SCH ×2 (08:36→21:31)
[2023-02-16] MEDS: Loratadine 10 MG TAB PO SCH (08:36)
[2023-02-16] MEDS: Sertraline 100 MG TAB PO SCH (21:31)
[2023-02-16] MEDS: QUEtiapine 25 MG TAB PO SCH (21:32)
[2023-02-16] MEDS: Acetaminophen 325 MG TAB PO PRN (21:33)
[2023-02-16] MEDS: Atorvastatin Calcium 40 MG TAB PO SCH (21:33)
[2023-02-17 05:26] VITALS: BMI 23.6
[2023-02-17] MEDS: Venlafaxine HCl 25 MG TAB PO SCH (08:45)
[2023-02-17] MEDS: Famotidine 20 MG TAB PO SCH ×2 (08:46→20:52)
[2023-02-17] MEDS: Losartan Potassium 50 MG TAB PO SCH (08:46)
[2023-02-17] MEDS: NIFEdipine XL 30 MG TAB PO SCH (08:46)
[2023-02-17] MEDS: Loratadine 10 MG TAB PO SCH (08:47)
[2023-02-17] MEDS: Tamsulosin HCl 0.4 MG CAP PO SCH (08:47)
[2023-02-17] MEDS: Fluticasone Propionate Nasal Spray 16 gm Bottle NASAL SCH (08:49)
[2023-02-17] MEDS: QUEtiapine 25 MG TAB PO SCH (20:52)
[2023-02-17] MEDS: Atorvastatin Calcium 40 MG TAB PO SCH (20:52)
[2023-02-17] MEDS: Acetaminophen 325 MG TAB PO PRN (20:52)
[2023-02-17] MEDS: Sertraline 100 MG TAB PO SCH (20:53)
[2023-02-18 06:10] LABS: #Basophils 0.1 thou/uL (0.0-0.2); #Eosinphils 0.6 thou/uL (0.0-0.7); #Lymphocytes 1.7 thou/uL (1.20-3.40); #Monocytes 0.7 thou/uL (0.11-0.59); #Neutrophils 3.1 thou/uL (1.40-6.50); %Basophils 0.9 % (0.0-1.0); %Eosinophils 10.3 % (0.0-10.0); %Lymphocytes 27.3 % (21.0-51.0); %Monocytes 11.4 % (0.0-10.0); %Neutrophils 50.2 % (42.0-75.0); Hemoglobin 11.5 g/dL (14.0-18.0); Mean Corpuscular HGB CONC 31.3 g/dL (32.0-36.0); Mean Corpuscular Hemoglobin 29.1 pg (27.0-31.0); Mean Corpuscular Volume 92.9 fl (78.0-98.0); Platelet Count 300 10x3/uL (130-400); RBC Distribution Width 12.9 % (11.5-14.5); Red Blood Cell (RBC) Count 3.97 mill/uL (4.70-6.10); White Blood Cell (WBC) Count 6.2 10x3/uL (4.8-10.8)
[2023-02-18 06:24] LABS: Anion Gap 12 mmol/L (10-20); BUN (Urea Nitrogen) 9 mg/dL (8.4-25.7); Calc. Creatinine Clearance 108 mL/min (70-130); Calcium 9.1 mg/dL (7.8-10.44); Carbon Dioxide 23 mmol/L (23-31); Chloride 108 mmol/L (98-107); Estimated GFR 99; Glucose 98 mg/dL (83-110); Potassium 3.2 mmol/L (3.5-5.1); Sodium 140 mmol/L (136-145)
[2023-02-18] MEDS: Fluticasone Propionate Nasal Spray 16 gm Bottle NASAL SCH (08:01)
[2023-02-18] MEDS: Venlafaxine HCl 25 MG TAB PO SCH (08:01)
[2023-02-18] MEDS: Tamsulosin HCl 0.4 MG CAP PO SCH (08:02)
[2023-02-18] MEDS: Famotidine 20 MG TAB PO SCH ×2 (08:02→20:44)
[2023-02-18] MEDS: NIFEdipine XL 30 MG TAB PO SCH (08:02)
[2023-02-18] MEDS: Loratadine 10 MG TAB PO SCH (08:02)
[2023-02-18] MEDS: Losartan Potassium 50 MG TAB PO SCH (08:02)
[2023-02-18 12:58] LABS: Magnesium 1.8 mg/dL (1.6-2.6)
[2023-02-18] MEDS: Atorvastatin Calcium 40 MG TAB PO SCH (20:43)
[2023-02-18] MEDS: QUEtiapine 25 MG TAB PO SCH (20:43)
[2023-02-18] MEDS: Sertraline 100 MG TAB PO SCH (20:44)
[2023-02-18] MEDS: Acetaminophen 325 MG TAB PO PRN (20:44)
[2023-02-19] MEDS: Fluticasone Propionate Nasal Spray 16 gm Bottle NASAL SCH (09:08)
[2023-02-19] MEDS: Potassium Chloride 20 MEQ TAB PO SCH ×2 (09:09→17:41)
[2023-02-19] MEDS: Losartan Potassium 50 MG TAB PO SCH (09:09)
[2023-02-19] MEDS: NIFEdipine XL 30 MG TAB PO SCH (09:09)
[2023-02-19] MEDS: Venlafaxine HCl 25 MG TAB PO SCH (09:09)
[2023-02-19] MEDS: Tamsulosin HCl 0.4 MG CAP PO SCH (09:09)
[2023-02-19] MEDS: Famotidine 20 MG TAB PO SCH ×2 (09:10→20:42)
[2023-02-19] MEDS: Loratadine 10 MG TAB PO SCH (09:10)
[2023-02-19] MEDS: QUEtiapine 25 MG TAB PO SCH (20:41)
[2023-02-19] MEDS: Acetaminophen 325 MG TAB PO PRN (20:41)
[2023-02-19] MEDS: Sertraline 100 MG TAB PO SCH (20:42)
[2023-02-19] MEDS: Atorvastatin Calcium 40 MG TAB PO SCH (20:42)
[2023-02-20] MEDS: Fluticasone Propionate Nasal Spray 16 gm Bottle NASAL SCH (08:07)
[2023-02-20] MEDS: Famotidine 20 MG TAB PO SCH ×2 (08:08→20:26)
[2023-02-20] MEDS: Venlafaxine HCl 25 MG TAB PO SCH (08:08)
[2023-02-20] MEDS: NIFEdipine XL 30 MG TAB PO SCH (08:09)
[2023-02-20] MEDS: Tamsulosin HCl 0.4 MG CAP PO SCH (08:09)
[2023-02-20] MEDS: Loratadine 10 MG TAB PO SCH (08:09)
[2023-02-20] MEDS: Losartan Potassium 50 MG TAB PO SCH (08:09)
[2023-02-20 09:57] LABS: Anion Gap 17 mmol/L (10-20); BUN (Urea Nitrogen) 10 mg/dL (8.4-25.7); Calc. Creatinine Clearance 94 mL/min (70-130); Calcium 9.4 mg/dL (7.8-10.44); Carbon Dioxide 19 mmol/L (23-31); Chloride 109 mmol/L (98-107); Estimated GFR 95; Glucose 126 mg/dL (83-110); Potassium 3.7 mmol/L (3.5-5.1); Sodium 141 mmol/L (136-145)
[2023-02-20] MEDS: QUEtiapine 25 MG TAB PO SCH (20:26)
[2023-02-20] MEDS: Sertraline 100 MG TAB PO SCH (20:26)
[2023-02-20] MEDS: Atorvastatin Calcium 40 MG TAB PO SCH (20:26)
[2023-02-20] MEDS: Acetaminophen 325 MG TAB PO PRN (20:26)
[2023-02-21 06:26] LABS: Anion Gap 13 mmol/L (10-20); BUN (Urea Nitrogen) 9 mg/dL (8.4-25.7); Calc. Creatinine Clearance 109 mL/min (70-130); Calcium 9.1 mg/dL (7.8-10.44); Carbon Dioxide 22 mmol/L (23-31); Chloride 109 mmol/L (98-107); Estimated GFR 100; Glucose 92 mg/dL (83-110); Potassium 3.3 mmol/L (3.5-5.1); Sodium 141 mmol/L (136-145)
[2023-02-21] MEDS: Venlafaxine HCl 25 MG TAB PO SCH (08:54)
[2023-02-21] MEDS: Fluticasone Propionate Nasal Spray 16 gm Bottle NASAL SCH (08:54)
[2023-02-21] MEDS: Loratadine 10 MG TAB PO SCH (08:55)
[2023-02-21] MEDS: Losartan Potassium 50 MG TAB PO SCH (08:55)
[2023-02-21] MEDS: Famotidine 20 MG TAB PO SCH ×2 (08:55→20:39)
[2023-02-21] MEDS: Tamsulosin HCl 0.4 MG CAP PO SCH (08:55)
[2023-02-21] MEDS: NIFEdipine XL 30 MG TAB PO SCH (08:59)
[2023-02-21 13:27] LABS: SARS-CoV-2 NAA Rapid Test Not Detected (NotDetected)
[2023-02-21] MEDS: QUEtiapine 25 MG TAB PO SCH (20:39)
[2023-02-21] MEDS: Sertraline 100 MG TAB PO SCH (20:39)
[2023-02-21] MEDS: Atorvastatin Calcium 40 MG TAB PO SCH (20:40)
[2023-02-22 06:03] LABS: #Lymphocytes 1.7 thou/uL (1.20-3.40); #Neutrophils 6.1 thou/uL (1.40-6.50); %Basophils 0.6 % (0.0-1.0); %Eosinophils 5.1 % (0.0-10.0); %Lymphocytes 18.5 % (21.0-51.0); %Monocytes 8.4 % (0.0-10.0); %Neutrophils 67.5 % (42.0-75.0); Hemoglobin 11.9 g/dL (14.0-18.0); Manual Diff?? NO; Mean Corpuscular HGB CONC 31.1 g/dL (32.0-36.0); Mean Corpuscular Hemoglobin 29.3 pg (27.0-31.0); Mean Corpuscular Volume 94.1 fl (78.0-98.0); Platelet Count 275 10x3/uL (130-400); Red Blood Cell (RBC) Count 4.06 mill/uL (4.70-6.10)
[2023-02-22 06:04] LABS: #Basophils 0.1 thou/uL (0.0-0.2); #Eosinphils 0.5 thou/uL (0.0-0.7); #Monocytes 0.8 thou/uL (0.11-0.59)
[2023-02-22 06:15] LABS: Anion Gap 12 mmol/L (10-20); BUN (Urea Nitrogen) 9 mg/dL (8.4-25.7); Calc. Creatinine Clearance 111 mL/min (70-130); Calcium 9.1 mg/dL (7.8-10.44); Carbon Dioxide 22 mmol/L (23-31); Chloride 107 mmol/L (98-107); Estimated GFR 100; Glucose 97 mg/dL (83-110); Potassium 3.4 mmol/L (3.5-5.1); Sodium 138 mmol/L (136-145)
[2023-02-22] MEDS: Fluticasone Propionate Nasal Spray 16 gm Bottle NASAL SCH (08:10)
[2023-02-22] MEDS: Losartan Potassium 50 MG TAB PO SCH (08:10)
[2023-02-22] MEDS: NIFEdipine XL 30 MG TAB PO SCH (08:10)
[2023-02-22] MEDS: Loratadine 10 MG TAB PO SCH (08:11)
[2023-02-22] MEDS: Famotidine 20 MG TAB PO SCH (08:11)
[2023-02-22] MEDS: Venlafaxine HCl 25 MG TAB PO SCH (08:11)
[2023-02-22] MEDS: Tamsulosin HCl 0.4 MG CAP PO SCH (08:12)
[2023-02-22 19:35] VITALS: BP 114/66; TEMP 98.7
== END 2023-02-22 20:07 | disposition home health service (06) | DRG 57 ==
LOC: NAV ACUTE 20:46
PROVIDERS: ADMIT Family Medicine; ATTEND Family Medicine
DX: I69.354 Hemiplegia and hemiparesis following cerebral infarction affecting left non-dominant side (principal); F03.B4 Unspecified dementia, moderate, with anxiety; E78.2 Mixed hyperlipidemia; Z20.822 Contact with and (suspected) exposure to COVID-19; I10 Essential (primary) hypertension; K21.9 Gastro-esophageal reflux disease without esophagitis; G47.00 Insomnia, unspecified; N40.0 Benign prostatic hyperplasia without lower urinary tract symptoms; Z79.899 Other long term (current) drug therapy
CPT/HCPCS: 36415; 80048; 81001; 83735; 85025; J0696; J1650; J3490; J7050; U0002

== ENCOUNTER → 2023-01-19 | Emergency (ER) | payer MEDICARE ==
[~2023-01-19] MED LIST: Ondansetron ODT 4 MG TAB SL PRN; Ondansetron PF 4 MG/2 ML Vial IVP PRN; Sodium Chloride 0.9% 1,000 ML IV SCH; Sodium Chloride 0.9% 1,000 ML ONE; Sodium Chloride 0.9% 100 ML ONE; cefTRIAXone\\ROCEPHIN 1 GM VIAL ONE
[2023-01-19 16:49] LABS: #Eosinphils 0.3 thou/uL (0.0-0.7); #Lymphocytes 1.6 thou/uL (1.20-3.40); #Monocytes 0.8 thou/uL (0.11-0.59); #Neutrophils 4.8 thou/uL (1.40-6.50); %Basophils 0.5 % (0.0-1.0); %Eosinophils 3.4 % (0.0-10.0); %Lymphocytes 21.4 % (21.0-51.0); %Monocytes 10.9 % (0.0-10.0); %Neutrophils 63.8 % (42.0-75.0); Hemoglobin 13.8 g/dL (14.0-18.0); Mean Corpuscular HGB CONC 32.1 g/dL (32.0-36.0); Mean Corpuscular Hemoglobin 29.5 pg (27.0-31.0); Mean Corpuscular Volume 92.1 fl (78.0-98.0); Mean Platelet Volume 6.8 fL (7.4-10.4); Platelet Count 362 10x3/uL (130-400); RBC Distribution Width 11.1 % (11.5-14.5); Red Blood Cell (RBC) Count 4.67 mill/uL (4.70-6.10); White Blood Cell (WBC) Count 7.5 10x3/uL (4.8-10.8)
[2023-01-19 17:16] LABS: ALT (SGPT) 87 U/L (8-55); AST (SGOT) 42 U/L (5-34); Albumin 3.4 g/dL (3.4-4.8); Alkaline Phosphatase 57 U/L (40-110); Anion Gap 17 mmol/L (10-20); BUN (Urea Nitrogen) 13 mg/dL (8.4-25.7); Bilirubin, Total 0.7 mg/dL (0.2-1.2); Calc. Creatinine Clearance 0 mL/min (70-130); Calcium 9.8 mg/dL (7.8-10.44); Carbon Dioxide 18 mmol/L (23-31); Chloride 108 mmol/L (98-107); Estimated GFR 94; Globulin 3.8 g/dL (2.4-3.5); Glucose 98 mg/dL (83-110); Potassium 3.8 mmol/L (3.5-5.1); Protein, Total 7.2 g/dL (5.8-8.1); Sodium 139 mmol/L (136-145)
[2023-01-19 17:41] LABS: Bilirubin Negative (Negative); Blood, Urine Trace (Negative); Clarity Clear (Clear); Glucose, Urine (Dipstick) Negative (Negative); Ketone, Urine 40 mg/dL (Negative); Leukocyte Small (Negative); Nitrite Negative (Negative); Protein, Urine (Dipstick) Negative (Neg-Trace); Specific Gravity, Urine 1.015 (1.005-1.030); pH, Urine 6.5 (5.0-9.0)
[2023-01-19 17:48] LABS: Bacteria/HPF 1+ HPF (None Seen); RBC/HPF 0-3 HPF (0-3); Squamous Epithelial 0-3 HPF (0-3)
[2023-01-19 20:07] LABS: SARS-CoV-2 NAA Rapid Test Not Detected (NotDetected)
[2023-01-19 20:30] VITALS: BP 154/87; TEMP 98.5; BMI 23.8
== END ==
LOC: NAV ERS 15:52 → NAV ACUTE 19:38 → UNDOADMIN 19:38
DX: N39.0 Urinary tract infection, site not specified (principal); E86.0 Dehydration; R53.1 Weakness; Z20.822 Contact with and (suspected) exposure to COVID-19; Z79.899 Other long term (current) drug therapy
CPT/HCPCS: 71045; 80053; 81003; 81015; 85025; 93005; 96361; 96374; J0696; J3490; J7050; U0002